=== PATIENT | male | born 1995 | race Caucasian/White ===

== ENCOUNTER 2021-03-22 23:20 | Emergency (ER) | payer MEDICAID ==
[~2021-03-22] VITALS: Ht 185.4 cm; Wt 97.1 kg
[2021-03-22 23:22] VITALS: BP 118/68
--- NOTE | 2021-03-23 01:16 | NUR ---
Patient discharged to home in stable condition. Written and verbal after care instructions given. Patient verbalizes understanding of instruction.
== END 2021-03-23 01:21 | disposition home or self-care (01) ==
LOC: ER 23:20
DX: R09.89 Other specified symptoms and signs involving the circulatory and respiratory systems (principal)
CPT/HCPCS: 70490-TC

== ENCOUNTER 2024-11-22 00:24 | Emergency (ER) | payer SELFPAY ==
[~2024-11-22] VITALS: Ht 180.3 cm; Wt 99.8 kg
[2024-11-22] MEDS ORDERED: LIDOCAINE 1% INJ 50 ML MDV IJ ONE (00:59)
[2024-11-22] MEDS ORDERED: TDAP [DIPH/PERTUSSIS/TET] 0.5 ML VIAL IM ONE (01:05)
[2024-11-22] MEDS: TDAP [DIPH/PERTUSSIS/TET] 0.5 ML VIAL IM ONE (01:09)
[2024-11-22 01:14] LABS: PLATELET COUNT (AUTO) 214 K/uL (150-450); RED BLOOD CELL COUNT(AUTO) 4.98 MIL/uL (4.5-6.0); RED CELL DISTRIBUTION WIDTH 13.5 % (11.5-15.0); WHITE BLOOD COUNT (AUTO) 7.4 K/uL (4.3-11.0)
[2024-11-22 01:21] LABS: CALCIUM, SERUM 8.7 mg/dL (8.5-10.1); CREATININE 1.2 mg/dL (0.6-1.3); SODIUM SERUM 140.0 mmol/L (136-145); UREA NITROGEN, BLOOD 14.0 mg/dL (7-18)
[2024-11-22 01:25] LABS: INR 1.07 (0.91-1.10)
[2024-11-22 01:28] LABS: ALCOHOL, BLOOD 3.0 mg/dL (0-10); ASPARTATE AMINOTRANSFERASE 43.0 U/L (15-37); TOTAL PROTEIN, SERUM 7.4 g/dL (6.4-8.2)
[2024-11-22] MEDS ORDERED: LIDOCAINE 1%-EPI 1:100,000 20 ML VIAL ONE (01:40)
[2024-11-22] MEDS: LIDOCAINE 1%-EPI 1:100,000 20 ML VIAL TP ONE (01:47)
[2024-11-22] MEDS ORDERED: IBUP-1490 PO (02:07)
[2024-11-22] MEDS ORDERED: HYDR-3980 PO (02:07)
[2024-11-22] MEDS ORDERED: IBUPROFEN 600 MG TABLET ONE (02:49)
[2024-11-22] MEDS ORDERED: IBUPROFEN 200 MG TABLET ONE (02:49)
[2024-11-22] MEDS: IBUPROFEN 400 MG TABLET PO ONE (02:53)
[2024-11-22 03:21] VITALS: BP 126/89; O2SAT 100
== END 2024-11-22 03:21 | disposition home or self-care (01) ==
LOC: ER 00:26
DX: S01.01XA Laceration without foreign body of scalp, initial encounter (principal); S31.010A Laceration without foreign body of lower back and pelvis without penetration into retroperitoneum, initial encounter; S93.492A Sprain of other ligament of left ankle, initial encounter; S60.222A Contusion of left hand, initial encounter; S80.02XA Contusion of left knee, initial encounter; S80.212A Abrasion, left knee, initial encounter; R07.9 Chest pain, unspecified; V43.52XA Car driver injured in collision with other type car in traffic accident, initial encounter; Y93.89 Activity, other specified; Y92.488 Other paved roadways as the place of occurrence of the external cause; Y99.8 Other external cause status
CPT/HCPCS: 12005; 36415; 70450; 71250; 72125; 73130; 73564; 73610; 74176; 80048; 80076; 80320; 85025; 85730; 90471; 90715; 93005; 99285; A6403; J3490; G0480